=== PATIENT | male | born 1995 | race African-American/Black ===

== ENCOUNTER 2017-03-03 13:56 | Emergency (ER) | payer BC ==
[~2017-03-03] VITALS: Ht 180.3 cm; Wt 60.0 kg
[2017-03-03] MEDS ORDERED: IOHEXOL 350 MG/ML 10 ML VIAL (for RAD DIAG) IVCONTRAST ONE (13:57)
[2017-03-03 13:59] VITALS: BP 142/92; PULSE 63; RESP 14; TEMP 98.1; O2SAT 98
--- NOTE | 2017-03-03 14:02 | PD ---
Physical Exam Date Seen by Provider: Mar 03, 2017 Time Seen by Provider: 14:00 Narrative 21 yo male here for evaluation of possible warts. Has had pain to right groin since thursday. "I looked up" and it might be warts. No discharge. No trauma. No testicular pain. Urinary symptoms. Vitals are stable in triage. Awaiting bed placement. [facility] Medical Record Reviewed: Yes Supervised Visit with INDIGO: No Carlo Cuellar Mar 03, 2017 14:01
--- NOTE | 2017-03-03 15:53 | PD ---
HPI Chief Complaint: Pain: Acute or Chronic Time Seen by Provider: 15:51 Travel History International Travel<30 days: No Contact w/Intl Traveler<30days: No Traveled to known affect area: No History of Present Illness HPI 21-year-old male presents to emergency Department with complaint of right testicular pain and right lower quadrant abdominal pain that has been on and off since Thursday. Denies fever, vomiting, change in urine or stool. Denies dysuria or hematuria. Denies penile discharge, drainage. Reports right testicular swelling; says he feels a "knot" in his testicle. Denies history of abdominal surgeries. Unknown exposure to STD eyes. Reports sexual abstinence. Has not taken any medications or tried any treatments to alleviate his symptoms. No known allergies. Has no other medical complaints. Symptoms are moderate in severity. No other factors or associated signs and symptoms. [facility] Social History Tobacco Use: No Allergies-Medications (Allergen,Severity, Reaction): Coded Allergies: No Known Allergies (Unverified , 03/03/17) Reported Meds & Prescriptions Reported Meds & Active Scripts Active No Active Prescriptions or Reported Medications Review of Systems Except as stated in HPI: all other systems reviewed are Neg Physical Exam Narrative GENERAL: Well-nourished, well-developed black male patient, in no acute distress ; afebrile, nontoxic-appearing SKIN: Warm and dry. HEAD: Atraumatic. Normocephalic. EYES: Pupils equal and round. ENT: Mucosa pink and moist. NECK: Trachea midline. No lymphadenopathy. CARDIOVASCULAR: Regular rate. RESPIRATORY: No accessory muscle use. GASTROINTESTINAL: Abdomen soft and nondisteneded; with tenderness to the right lower quadrant. Hepatic and splenic margins not palpable. Bowel sounds are active 4 quadrants. Bladder nontender and nondistended. GENITOURINARY: Exam done in the presence of a nurse. Circumcised. Testes descended bilaterally. Right testicle feels firm and bigger than the left testicle; right testicle with tenderness on palpation. No lesions or erythema. No urethral discharge. No hernia noted to the right groin area in standing and lying position. MUSCULOSKELETAL: No obvious deformities. No clubbing. No cyanosis. No edema. BACK: No CVA tenderness. NEUROLOGICAL: Awake and alert. Oriented 3. No obvious cranial nerve deficits. Motor grossly within normal limits. Normal speech. Moves all extremities. 5/5 strength to all extremities. PSYCHIATRIC: Appropriate mood and affect; insight and judgment normal. Data Data Last Documented VS Vital Signs Date Time Temp Pulse Resp B/P (MAP) Pulse Ox O2 Delivery O2 Flow Rate FiO2 03/03/17 17:23 93 18 135/78 (97) 96 Room Air 03/03/17 13:59 98.1 Orders Orders Complete Blood Count With Diff (03/03/17 15:51) Comprehensive Metabolic Panel (03/03/17 15:51) Lipase (03/03/17 15:51) Urinalysis - C+S If Indicated (03/03/17 15:51) Iv Access Insert/Monitor (03/03/17 15:51) Sodium Chloride 0.9% Flush (Ns Flush) (03/03/17 16:00) Gc And Chlamydia Pcr (03/03/17 15:51) Us Testicles W Doppler (03/03/17 ) Ct Abd/Pel W Iv Contrast(Rout) (03/03/17 15:59) Prothrombin Time / Inr (Pt) (03/03/17 15:59) Act Partial Throm Time (Ptt) (03/03/17 15:59) Oral Contrast - Adult (03/03/17 16:10) Diatrizoate Liq ( Gastroview Liq) (03/03/17 17:17) Iohexol 350 Inj (Omnipaque 350 Inj) (03/03/17 13:57) Ed Discharge Order (03/03/17 19:06) Labs Laboratory Tests Test 03/03/17 16:10 03/03/17 16:28 White Blood Count 4.3 TH/MM3 Red Blood Count 5.40 MIL/MM3 Hemoglobin 17.3 GM/DL Hematocrit 50.2 % Mean Corpuscular Volume 93.0 FL Mean Corpuscular Hemoglobin 32.0 PG Mean Corpuscular Hemoglobin Concent 34.5 % Red Cell Distribution Width 12.9 % Platelet Count 262 TH/MM3 Mean Platelet Volume 8.7 FL Neutrophils (%) (Auto) 35.2 % Lymphocytes (%) (Auto) 52.9 % Monocytes (%) (Auto) 10.5 % Eosinophils (%) (Auto) 1.1 % Basophils (%) (Auto) 0.3 % Neutrophils # (Auto) 1.5 TH/MM3 Lymphocytes # (Auto) 2.3 TH/MM3 Monocytes # (Auto) 0.5 TH/MM3 Eosinophils # (Auto) 0.0 TH/MM3 Basophils # (Auto) 0.0 TH/MM3 CBC Comment DIFF FINAL Differential Comment Blood Urea Nitrogen 13 MG/DL Creatinine 1.10 MG/DL Random Glucose 85 MG/DL Total Protein 9.1 GM/DL Albumin 5.0 GM/DL Calcium Level 9.6 MG/DL Alkaline Phosphatase 71 U/L Aspartate Amino Transf (AST/SGOT) 17 U/L Alanine Aminotransferase (ALT/SGPT) 23 U/L Total Bilirubin 2.8 MG/DL Sodium Level 135 MEQ/L Potassium Level 3.7 MEQ/L Chloride Level 99 MEQ/L Carbon Dioxide Level 28.6 MEQ/L Anion Gap 7 MEQ/L Estimat Glomerular Filtration Rate 105 ML/MIN Lipase 404 U/L Prothrombin Time 12.1 SEC Prothromb Time International Ratio 1.1 RATIO Activated Partial Thromboplast Time 30.0 SEC Urine Color YELLOW Urine Turbidity CLEAR Urine pH 7.0 Urine Specific [place] 1.022 Urine Protein TRACE mg/dL Urine Glucose (UA) NEG mg/dL Urine Ketones 10 mg/dL Urine Occult Blood NEG Urine Nitrite NEG Urine Bilirubin NEG Urine Urobilinogen 4.0 MG/DL Urine Leukocyte Esterase NEG Urine RBC LESS THAN 1 /hpf Urine WBC 1 /hpf Urine Mucus FEW /lpf Urine Sperm RARE Microscopic Urinalysis Comment CULT NOT INDICATED Chlamydia trachomatis DNA (PCR) NOT DETECTED Neisseria gonorrhoeae DNA (PCR) NOT DETECTED MDM Medical Decision Making Medical Screen Exam Complete: Yes Emergency Medical Condition: Yes Medical Record Reviewed: Yes Differential Diagnosis Testicular torsion, appendicitis, inguinal hernia Narrative Course 21-year-old male presents with right testicular pain and right lower quadrant abdominal pain. I discussed patient with Dr. Fuentes and he agrees with my plan of care. Patient will be moved to a medical bed for further evaluation and treatment. IV site obtained. CBC, BMP, coags, UA, chlamydia, gonorrhea, testicular ultrasound, and CT abdomen/pelvis ordered. Report given to Dr. Shaffer. See his note for final disposition. Scripts No Active Prescriptions or Reported Meds Mini Bee Mar 03, 2017 15:53
[2017-03-03] MEDS ORDERED: SODIUM CHLORIDE 0.9% FLUSH 10 ML FLUSH IV FLUSH PRN (16:00)
[2017-03-03 16:32] LABS: AUTOMATED NEUTROPHIL # 1.5 TH/MM3 (1.8-7.7); BASOPHIL % 0.3 % (0.0-2.0); EOSINOPHIL % 1.1 % (0.0-4.0); HEMATOCRIT 50.2 % (39.0-51.0); HEMO FLAGS DIFF FINAL; LYMPH % 52.9 % (9.0-44.0); LYMPHOCYTE # 2.3 TH/MM3 (1.0-4.8); MEAN CORPUSCULAR HGB CONC 34.5 % (32.0-36.0); MONO % 10.5 % (0.0-8.0); NEUT % 35.2 % (16.0-70.0); PLATELET COUNT 262 TH/MM3 (150-450); RED CELL DISTRIBUTION WIDTH 12.9 % (11.6-17.2); WHITE BLOOD COUNT 4.3 TH/MM3 (4.0-11.0)
[2017-03-03 16:42] LABS: ALT (GPT) 23 U/L (9-52); ANION GAP 7 MEQ/L (5-15); AST (GOT) 17 U/L (15-39); BICARBONATE 28.6 MEQ/L (21.0-32.0); BLOOD UREA NITROGEN 13 MG/DL (7-18); CHLORIDE 99 MEQ/L (98-107); GLOMERULAR FILTRATION RATE 105 ML/MIN (>89); POTASSIUM 3.7 MEQ/L (3.5-5.1); SODIUM (NA) 135 MEQ/L (136-145)
[2017-03-03 16:45] LABS: ALKALINE PHOSPHATASE 71 U/L (45-117); TOTAL BILIRUBIN ADULT 2.8 MG/DL (0.2-1.0)
[2017-03-03 16:50] LABS: BLOOD, URINE NEG (NEG); COMMENT (UR) CULT NOT INDICATED; CULTURE IF INDICATED CULT NOT INDICATED; GLUCOSE,URINE NEG (NEG); KETONE, URINE 10 mg/dL (NEG); MUCUS URINE FEW /lpf (OCC); NITRITE,URINE NEG (NEG); URINE COLOR YELLOW (YELLW/STRAW)
[2017-03-03 16:53] LABS: INTERNATIONAL NORMALIZED RATIO 1.1 RATIO; PROTHROMBIN TIME - PATIENT 12.1 SEC (9.8-11.6)
--- NOTE | 2017-03-03 17:00 | RADRPT ---
EXAM DATE/TIME: 03/03/2017 16:16 [facility] COMPARISON: No previous studies available for comparison. INDICATIONS : Testicular pain. MEDICAL HISTORY : Right groin pain. SURGICAL HISTORY : ENCOUNTER: Initial ACUITY: 3 days PAIN SCORE: 7/10 LOCATION: Bilateral testicle. MEASUREMENTS: RIGHT TESTICLE: 4.1 x 2.7 x 2.1cm LEFT TESTICLE: 5.3 x 2.7 x 2.2cm FINDINGS: RIGHT TESTICLE: Homogeneous echotexture without intra or extratesticular mass. Blood flow is symmetric and within no rmal limits. No hydrocele or varicocele. Epididymis is within normal limits. LEFT TESTICLE: Homogeneous echotexture without intra or extratesticular mass. Blood flow is symmetric and within no rmal limits. No hydrocele or varicocele. Epididymis is within normal limits. SCROTUM: Peristaltic activity was identified in the right inguinal canal. CONCLUSION: 1. No evidence of testicular torsion or epididymitis. 2. Peristaltic activity in the right inguinal canal which represents an inguinal hernia. Anthony Holliday MD on March 03, 2017 at 16:55 Board Certified Radiologist. This report was verified electronically.
[2017-03-03] MEDS ORDERED: DIATRIZOATE MEGLUM/DIATRIZOATE SOD 9 ML CUP ONE (17:17)
[2017-03-03 17:23] VITALS: BP 135/78; PULSE 93; RESP 18; O2SAT 96
--- NOTE | 2017-03-03 18:41 | RADRPT ---
EXAM DATE/TIME: 03/03/2017 18:24 [facility] COMPARISON: No previous studies available for comparison. INDICATIONS : Lower groin pain for four days. IV CONTRAST: 90 cc Omnipaque 350 (iohexol) IV ORAL CONTRAST: Prescribed oral contrast ingested. RADIATION DOSE: 4.92 CTDIvol (mGy) MEDICAL HISTORY : None SURGICAL HISTORY : None. ENCOUNTER: Initial ACUITY: 4 - 6 days PAIN SCALE: 7/10 LOCATION: Right lower groin region. TECHNIQUE: Volumetric scanning of the abdomen and pelvis was performed. Using automated exposure control and ad justment of the mA and/or kV according to patient size, radiation dose was kept as low as reasonably achievable to obtain optimal diagnostic quality images. DICOM format image data is available electro nically for review and comparison. FINDINGS: LOWER LUNGS: The visualized lower lungs are clear. LIVER: Homogeneous density without lesion. There is no dilation of the biliary tree. No calcified gallston es. SPLEEN: Normal size without lesion. PANCREAS: Within normal limits. KIDNEYS: Normal in size and shape. There is no mass, stone or hydronephrosis. ADRENAL GLANDS: Within normal limits. VASCULAR: There is no aortic aneurysm. BOWEL/MESENTERY: The stomach, small bowel, and colon demonstrate no acute abnormality. There is no free intraperitone al air or fluid. The appendix is unremarkable. No inflammatory changes. ABDOMINAL WALL: Within normal limits. RETROPERITONEUM: There is no lymphadenopathy. BLADDER: No wall thickening or mass. No evidence of stones. REPRODUCTIVE: Within normal limits. INGUINAL: There is no lymphadenopathy or hernia. MUSCULOSKELETAL: Within normal limits for patient age. CONCLUSION: Unremarkable CT scan of the abdomen and pelvis. Jovanny Macias MD on March 03, 2017 at 18:38 Board Certified Radiologist. This report was verified electronically.
--- NOTE | 2017-03-03 19:06 | PD ---
Data Data Last Documented VS Vital Signs Date Time Temp Pulse Resp B/P (MAP) Pulse Ox O2 Delivery O2 Flow Rate FiO2 03/03/17 17:23 93 18 135/78 (97) 96 Room Air 03/03/17 13:59 98.1 Orders Orders Complete Blood Count With Diff (03/03/17 15:51) Comprehensive Metabolic Panel (03/03/17 15:51) Lipase (03/03/17 15:51) Urinalysis - C+S If Indicated (03/03/17 15:51) Iv Access Insert/Monitor (03/03/17 15:51) Sodium Chloride 0.9% Flush (Ns Flush) (03/03/17 16:00) Gc And Chlamydia Pcr (03/03/17 15:51) Us Testicles W Doppler (03/03/17 ) Ct Abd/Pel W Iv Contrast(Rout) (03/03/17 15:59) Prothrombin Time / Inr (Pt) (03/03/17 15:59) Act Partial Throm Time (Ptt) (03/03/17 15:59) Oral Contrast - Adult (03/03/17 16:10) Diatrizoate Liq ( Gastroview Liq) (03/03/17 17:17) Iohexol 350 Inj (Omnipaque 350 Inj) (03/03/17 13:57) Labs Laboratory Tests Test 03/03/17 16:10 03/03/17 16:28 White Blood Count 4.3 TH/MM3 Red Blood Count 5.40 MIL/MM3 Hemoglobin 17.3 GM/DL Hematocrit 50.2 % Mean Corpuscular Volume 93.0 FL Mean Corpuscular Hemoglobin 32.0 PG Mean Corpuscular Hemoglobin Concent 34.5 % Red Cell Distribution Width 12.9 % Platelet Count 262 TH/MM3 Mean Platelet Volume 8.7 FL Neutrophils (%) (Auto) 35.2 % Lymphocytes (%) (Auto) 52.9 % Monocytes (%) (Auto) 10.5 % Eosinophils (%) (Auto) 1.1 % Basophils (%) (Auto) 0.3 % Neutrophils # (Auto) 1.5 TH/MM3 Lymphocytes # (Auto) 2.3 TH/MM3 Monocytes # (Auto) 0.5 TH/MM3 Eosinophils # (Auto) 0.0 TH/MM3 Basophils # (Auto) 0.0 TH/MM3 CBC Comment DIFF FINAL Differential Comment Blood Urea Nitrogen 13 MG/DL Creatinine 1.10 MG/DL Random Glucose 85 MG/DL Total Protein 9.1 GM/DL Albumin 5.0 GM/DL Calcium Level 9.6 MG/DL Alkaline Phosphatase 71 U/L Aspartate Amino Transf (AST/SGOT) 17 U/L Alanine Aminotransferase (ALT/SGPT) 23 U/L Total Bilirubin 2.8 MG/DL Sodium Level 135 MEQ/L Potassium Level 3.7 MEQ/L Chloride Level 99 MEQ/L Carbon Dioxide Level 28.6 MEQ/L Anion Gap 7 MEQ/L Estimat Glomerular Filtration Rate 105 ML/MIN Lipase 404 U/L Prothrombin Time 12.1 SEC Prothromb Time International Ratio 1.1 RATIO Activated Partial Thromboplast Time 30.0 SEC Urine Color YELLOW Urine Turbidity CLEAR Urine pH 7.0 Urine Specific [place] 1.022 Urine Protein TRACE mg/dL Urine Glucose (UA) NEG mg/dL Urine Ketones 10 mg/dL Urine Occult Blood NEG Urine Nitrite NEG Urine Bilirubin NEG Urine Urobilinogen 4.0 MG/DL Urine Leukocyte Esterase NEG Urine RBC LESS THAN 1 /hpf Urine WBC 1 /hpf Urine Mucus FEW /lpf Urine Sperm RARE Microscopic Urinalysis Comment CULT NOT INDICATED MDM Supervised Visit with INDIGO: Yes Narrative Course The history, exam, and medical decision-making in the associated mid-level provider note were completed with my assistance. I reviewed and agree with the findings presented. I attest that I had a [id number] encounter with the patient on the same day, and personally performed and documented my assessment and findings in the medical record. *My assessment and Findings: The 21-year-old man initially seen in triage, discussed with the previous attending, signed out to me to follow-up on the results of CT imaging and labs. Ultrasound suggestive of a hernia. On exam he does have a small hernia that really his only identifiable when he coughs. There is no large mass or incarceration. Remainder was workups unremarkable. Recommend outpatient follow -up for hernia. Diagnosis Primary Impression: Right inguinal hernia Referrals: Dhiraj Mitchell MD 1 day Additional Instruction: Follow-up with her primary doctor for further evaluation for hernia. Return to the emergency department for any new or worsening symptoms. Med/Other Pt SpecificInfo: Prescription(s) given Scripts No Active Prescriptions or Reported Meds Disposition: 01 DISCHARGE HOME Condition: Stable Jarod Shaffer MD Mar 03, 2017 19:06
[2017-03-03 20:53] LABS: CHLAMYDIA PCR NOT DETECTED (NOT DETECT); NEISSERIA PCR NOT DETECTED (NOT DETECT)
== END 2017-03-03 19:44 | disposition home or self-care (01) ==
LOC: NEPK 13:56 → NEPD 19:44
DX: K40.90 Unilateral inguinal hernia, without obstruction or gangrene, not specified as recurrent (principal)
CPT/HCPCS: 74177; 76870; 80053; 81001; 83690; 85025; 85610; 85730; 87491; 87591; 93975; 99285; Q9963; Q9967